=== PATIENT | male | born 1985 | race African-American/Black ===

== ENCOUNTER 2018-05-29 01:57 | Emergency (ER) | payer OTHER, MEDICAID ==
--- NOTE | 2018-05-29 02:07 | EDPHY ---
H & P Time Seen by Provider: 05/29/18 02:04 HPI/ROS: HPI CHIEF COMPLAINT: Bilateral Lower extremity Pain HISTORY OF PRESENT ILLNESS: 32-year-old male, has a history of DVTs on Xarelto , states he is compliant with his Xarelto, homeless, presents to the emergency room from the bus stop. Patient states that he took a bus from [facility] however arrived late in to [place] and was not allowed at the homeless custodial. He states that after spending a few hours in the bus station he decided call 911. He reports to EMS that his legs are swollen. He reports that his legs are more swollen than normal. Reports he has a history of DVTs but has been compliant with his Xarelto. He has to be transported the hospital for evaluation. Here in the emergency room he arrives in no acute distress. He denies any shortness of breath. Denies chest pain. Main complaint bilateral lower extremity swelling worse than normal. Past Medical History: Patient reports to me has a history of hypertension, on HCTZ, DVT on Xarelto, CHF. Diabetes. Insulin-dependent. Denies history of coronary artery disease CVA. Additional medical history from records PE, PTSD, bipolar disorder, schizoaffective disorder Past Surgical History: Gallbladder surgery Social History: Denies drugs alcohol. Occasional tobacco use. Family History: Noncontributory ROS REVIEW OF SYSTEMS: 10 Systems were reviewed and negative with the exception of the elements mentioned in the history of present illness. Exam Constitutional nontoxic no acute distress triage nursing summary reviewed, vital signs reviewed, awake/alert. 130/78. Heart rate 89. Afebrile. Eyes normal conjunctivae and sclera, EOMI, PERRLA. HENT normal inspection, atraumatic, moist mucus membranes, no epistaxis, neck supple/ no meningismus, no raccoon eyes. Respiratory clear to auscultation bilaterally, normal breath sounds, no respiratory distress, no wheezing. Cardiovascular rate normal, regular rhythm, no murmur, no edema, distal pulses normal. Gastrointestinal soft, non-tender, no rebound, no guarding, normal bowel sounds, no distension, no pulsatile mass. Genitourinary no CVA tenderness. Musculoskeletal bilateral lower extremity edema appears to be chronic on exam, no significant pitting, warm extremities, no midline vertebral tenderness, full range of motion, no calf swelling, no tenderness of extremities, no meningismus , good pulses, neurovascularly intact. Skin pink, warm, & dry, no rash, skin atraumatic. Neurologic awake, alert and oriented x 3, AAOx3, moves all 4 extremities equally, motor intact, sensory intact, CN II-XII intact, normal cerebellar, normal vision, normal speech. Psychiatric normal mood/affect. Heme/Lymph/Immune no lymphadenopathy. Differential Diagnosis: Includes but is not limited to in a particular order DVTs, CHF, electrolyte disturbance, hyperglycemia, infection. Medical Decision Making: Plan for this patient bilateral lower extremity ultrasound rule DVTs, basic blood work electrolytes and CBC, chest x-ray re- evaluate. Re-evaluation: EKG: Time of EKG 2:07 a.m., sinus rhythm RVH present. However no signs of acute ischemia no ST elevation no ST depression. When I compare this patient's EKG to his old EKG dated 09/28/2012 very similar morphology with RVH. Troponin: 0.01. BNP: Unremarkable. Not elevated. Ultrasound bilateral lower extremities: Negative for DVTs in either leg. Faxed me by direct Radiology at 2:55 a.m. 1632: Patient is sleeping no acute distress denies complaints upon wakening. Chest x-ray negative for acute cardiopulmonary disease. Image interpreted by myself. EKG interpretation by me on record in [employer] system. Impression time of EKG 5:50 a.m., sinus arrhythmia rate of 69, RVH present. No acute ischemic change appreciated on the EKG. When compared to the patient's old EKGs these are unchanged morphology. 2nd troponin 0.00 0617: Patient re-evaluated this time resting comfortably denies any chest pain or shortness of breath. He arrived here to the emergency room with leg pain bilaterally concern for DVT. No DVT was seen on either ultrasound. The patient does not have any chest pain or shortness of breath He has 2 troponins that are negative 2 nonischemic EKGs. Chest x-ray on revealing. Patient has been sleeping for multiple hours in the emergency room. Upon re-evaluation he has no complaints I do recommend he keep his legs elevated this will help with edema. Recommend he continues his home medications including his HCTZ Recommend he refrain from walking for long periods of time Return precautions discussed return emergency room if worsening chest pain shortness of breath or not doing well. Source: Patient, EMS - Personal History Tetanus Vaccine Date: 12/2011 - Medical/Surgical History Hx Asthma: No Hx Chronic Respiratory Disease: No Hx Diabetes: No Hx Cardiac Disease: No Hx Renal Disease: No Hx Cirrhosis: No Hx Alcoholism: No Hx HIV/AIDS: No Hx Splenectomy or Spleen Trauma: No Other PMH: sz disorder, urinary/stool incontinence, schizoaffective, bipolar, ADD, ADHD, PE, ptsd, DVT - Social History Smoking Status: Current every day smoker Constitutional: Initial Vital Signs Temperature (C) 36.8 C 05/29/18 02:12 Heart Rate 89 05/29/18 02:12 Respiratory Rate 18 05/29/18 02:12 Blood Pressure 130/78 H 05/29/18 02:12 O2 Sat (%) 94 05/29/18 02:12 O2 Delivery Mode Room Air Allergies/Adverse Reactions: acetaminophen Allergy (Verified 05/29/18 02:08) aspirin Allergy (Verified 05/29/18 02:08) hydrocodone [From Vicodin] Allergy (Verified 05/29/18 02:08) ibuprofen Allergy (Verified 05/29/18 02:22) oxycodone HCl [From Percocet] Allergy (Verified 07/02/13 13:24) Penicillins Allergy (Verified 09/23/12 19:03) Home Medications: Medication Instructions Recorded Hctz Unk 09/23/12 Sertraline HCl [Zoloft 50mg (*)] 150 mg PO HS 09/24/12 carBAMazepine [Tegretol (RX)] 200 mg PO DAILY 09/24/12 carBAMazepine [Tegretol (RX)] 400 mg PO HS 09/24/12 Simvastatin 07/02/13 Lantus 05/29/18 Xarelto 05/29/18 Medical Decision Making - Data Points Laboratory Results: Laboratory Results 05/29/18 02:15 05/29/18 02:15 05/29/18 05/29/18 05/29/18 02:29 02:15 02:15 WBC 6.41 10^3/uL 10^3/uL (3.80-9.50) RBC 4.85 10^6/uL 10^6/uL (4.40-6.38) Hgb 14.8 g/dL g/dL (13.7-17.5) Hct 45.5 % % (40.0-51.0) MCV 93.8 fL fL (81.5-99.8) MCH 30.5 pg pg (27.9-34.1) MCHC 32.5 g/dL g/dL (32.4-36.7) RDW 13.4 % % (11.5-15.2) Plt Count 216 10^3/uL 10^3/uL (150-400) MPV 9.8 fL fL (8.7-11.7) Neut % (Auto) 58.6 % % (39.3-74.2) Lymph % (Auto) 23.7 % % (15.0-45.0) [place] % (Auto) 11.2 % % (4.5-13.0) Eos % (Auto) 5.8 % % (0.6-7.6) Baso % (Auto) 0.5 % % (0.3-1.7) Nucleat RBC Rel Count 0.0 % % (0.0-0.2) Absolute Neuts (auto) 3.76 10^3/uL 10^3/uL (1.70-6.50) Absolute Lymphs (auto) 1.52 10^3/uL 10^3/uL (1.00-3.00) Absolute Monos (auto) 0.72 10^3/uL 10^3/uL (0.30-0.80) Absolute Eos (auto) 0.37 10^3/uL 10^3/uL (0.03-0.40) Absolute Basos (auto) 0.03 10^3/uL 10^3/uL (0.02-0.10) Absolute Nucleated RBC 0.00 10^3/uL 10^3/uL (0-0.01) Immature Gran % 0.2 % % (0.0-1.1) Immature Gran # 0.01 10^3/uL 10^3/uL (0.00-0.10) Sodium 139 mEq/L mEq/L (135-145) Potassium 4.3 mEq/L mEq/L (3.5-5.2) Chloride 108 mEq/L mEq/L (97-110) Carbon Dioxide 27 mEq/l mEq/l (22-31) Anion Gap 4 mEq/L L mEq/L (6-14) BUN 25 mg/dL H mg/dL (7-23) Creatinine 1.2 mg/dL mg/dL (0.7-1.3) Estimated GFR > 60 Glucose 100 mg/dL mg/dL (70-100) Calcium 9.0 mg/dL mg/dL (8.5-10.4) Magnesium 2.0 mg/dL mg/dL (1.6-2.3) POC Troponin I 0.01 ng/mL ng/mL (0.00-0.08) NT-Pro-B Natriuret Pep 25 pg/mL pg/mL (0-125) Medications Given: Discontinued Medications Ibuprofen (Motrin) 600 mg PO EDNOW ONE Stop: 05/29/18 02:19 Last Admin: 05/29/18 02:23 Dose: Not Given Point of Care Test Results: Chemistry 05/29/18 02:29 POC Troponin I 0.01 ng/mL ng/mL (0.00-0.08) Departure - Departure Disposition: Home, Routine, Self-Care Clinical Impression: Leg pain Qualifiers: Laterality: bilateral Qualified Code(s): M79.604 - Pain in right leg; M79.605 - Pain in left leg; M79.605 - Pain in left leg Condition: Good Instructions: Leg Pain (ED) Additional Instructions: 1. Return emergency room if worsening symptoms 2. Recommend keeping her legs elevated 3. Continue home medications 4. Return if worse. Referrals: Patient,NotPresent [Unknown] - As per Instructions [facility],. [Clinic] - As per Instructions
[2018-05-29] MEDS ORDERED: IBUPROFEN 600 MG TAB PO ONE (02:18)
[2018-05-29 02:22] LABS: PLATELET COUNT 216 10^3/uL (150-400)
[2018-05-29 06:23] VITALS: BP 106/75
--- NOTE | 2018-06-01 07:34 | CPEKG ---
Test Reason : OPEN Blood Pressure : / mmHG Vent. Rate : 069 BPM Atrial Rate : 069 BPM P-R Int : 150 ms QRS Dur : 104 ms QT Int : 408 ms P-R-T Axes : 067 060 031 degrees QTc Int : 437 ms Sinus arrhythmia Consider right ventricular hypertrophy Confirmed by Stephon Gasca ([id number]) on 06/01/2018 7:33:26 AM Referred By: Stephon Gasca Confirmed By:Stephon Gasca
== END 2018-05-29 07:00 | disposition home or self-care (01) ==
LOC: EDUNIT#
DX: M79.604 Pain in right leg (principal); M79.605 Pain in left leg; I10 Essential (primary) hypertension; E11.9 Type 2 diabetes mellitus without complications; Z86.718 Personal history of other venous thrombosis and embolism; Z79.01 Long term (current) use of anticoagulants; Z79.4 Long term (current) use of insulin; Z59.0 Homelessness
CPT/HCPCS: 84484-ER